=== PATIENT | female | born 1945 | race Caucasian/White ===

== ENCOUNTER 2021-10-29 15:38 | Inpatient (IN) ==
[2021-10-29] MEDS ORDERED: Artificial Tears SOLN 15 ML BOTTLE OP PRN (16:54)
[2021-10-29] MEDS ORDERED: Loratadine/Pseudophed (12 HR) 1 EACH TABLET PO PRN (16:54)
[2021-10-29] MEDS ORDERED: Denosumab 60 MG/ML SYRINGE SQ SCH (17:00)
[2021-10-29] MEDS: Metoprolol XL (24 HR) Succ 50 MG TAB.ER.24H PO SCH (20:38)
[2021-10-29] MEDS: Apixaban 5 MG TABLET PO SCH (20:38)
[2021-10-29] MEDS ORDERED: Metoprolol XL (24 HR) Succ 50 MG TAB.ER.24H PO SCH (21:00)
[2021-10-29] MEDS ORDERED: Metoprolol XL (24 HR) Succ 25 MG TAB.ER.24H PO SCH (21:00)
[2021-10-30 04:52] LABS: Basophils % 0.2 %; Eosinophils # 0.2 K/mcL (0.0-0.6); Eosinophils % 1.7 %; Hematocrit 29.8 % (35.3-44.9); Hemoglobin 9.9 g/dL (11.5-15.4); Immature Granulocytes % 0.8 % (0-4); Lymphocytes # 0.9 K/mcL (0.6-4.6); Lymphocytes % 8.9 %; Mean Corpuscular HGB Conc 33.2 g/dL (31.6-35.5); Mean Corpuscular Hemoglobin 33.9 pg (28.0-33.3); Mean Platelet Volume 10.8 fL (9.4-12.4); Monocytes # 0.6 K/mcL (0.0-1.3); Monocytes % 6.5 %; Neutrophils # 7.9 K/mcL (1.6-8.9); Platelet Count 257 K/mcL (140-400); Red Blood Count 2.92 M/mcL (3.82-4.97); Red Cell Distribution Width 14.5 % (11.5-14.5); Segmented Neutrophils % 81.9 %; White Blood Count 9.7 K/mcL (4.3-11.1)
[2021-10-30 05:04] LABS: BUN/Creatinine Ratio 19 (6-26); Blood Urea Nitrogen 10 mg/dL (8-23); Calcium 7.9 mg/dL (8.6-10.3); Carbon Dioxide 27 mEq/L (23-29); Chloride 103 mEq/L (98-107); Glucose 103 mg/dL (70-105); Osmolality,Calculated 283 (280-300); Potassium 3.9 mEq/L (3.5-5.1); Sodium 137 mEq/L (136-145); eGFR For African Americans > 60 (> 60); eGFR For Non-African Americans > 60 (> 60)
[2021-10-30 05:14] LABS: Mean Corpuscular Volume 102.1 fL (83.0-100.0)
[2021-10-30] MEDS: Apixaban 5 MG TABLET PO SCH ×2 (09:06→20:52)
[2021-10-30] MEDS: Metoprolol XL (24 HR) Succ 50 MG TAB.ER.24H PO SCH ×2 (09:06→20:52)
[2021-10-30] MEDS: Multivit/Ca/Min/Fe/FA 1 TAB TABLET PO SCH (09:07)
[2021-10-30] MEDS: lisinopriL 5 MG TABLET PO SCH (09:07)
[2021-10-30] MEDS: Aspirin 81 MG TAB.CHEW PO SCH (09:07)
[2021-10-30] MEDS: hydroCHLOROthiazide 25 MG TABLET PO SCH (09:07)
[2021-10-30] MEDS: DilTIAZem CD (24hr) 180 MG CAP.ER.24H PO SCH (09:07)
[2021-10-31] MEDS: Metoprolol XL (24 HR) Succ 50 MG TAB.ER.24H PO SCH ×2 (08:40→22:08)
[2021-10-31] MEDS: hydroCHLOROthiazide 25 MG TABLET PO SCH (08:42)
[2021-10-31] MEDS: Aspirin 81 MG TAB.CHEW PO SCH (08:42)
[2021-10-31] MEDS: DilTIAZem CD (24hr) 180 MG CAP.ER.24H PO SCH (08:42)
[2021-10-31] MEDS: lisinopriL 5 MG TABLET PO SCH (08:42)
[2021-10-31] MEDS: Apixaban 5 MG TABLET PO SCH ×2 (08:42→22:07)
[2021-10-31] MEDS: Multivit/Ca/Min/Fe/FA 1 TAB TABLET PO SCH (08:43)
[2021-11-01] MEDS: DilTIAZem CD (24hr) 180 MG CAP.ER.24H PO SCH (08:44)
[2021-11-01] MEDS: lisinopriL 5 MG TABLET PO SCH (08:45)
[2021-11-01] MEDS: Aspirin 81 MG TAB.CHEW PO SCH (08:45)
[2021-11-01] MEDS: Multivit/Ca/Min/Fe/FA 1 TAB TABLET PO SCH (08:45)
[2021-11-01] MEDS: Apixaban 5 MG TABLET PO SCH ×2 (08:45→19:43)
[2021-11-01] MEDS: Metoprolol XL (24 HR) Succ 50 MG TAB.ER.24H PO SCH ×2 (08:46→19:43)
[2021-11-01] MEDS: hydroCHLOROthiazide 25 MG TABLET PO SCH (08:47)
[2021-11-02 04:40] LABS: Hematocrit 29.5 % (35.3-44.9); Hemoglobin 9.8 g/dL (11.5-15.4); Mean Corpuscular HGB Conc 33.2 g/dL (31.6-35.5); Mean Corpuscular Hemoglobin 33.7 pg (28.0-33.3); Mean Corpuscular Volume 101.4 fL (83.0-100.0); Mean Platelet Volume 10.6 fL (9.4-12.4); Platelet Count 270 K/mcL (140-400); Red Blood Count 2.91 M/mcL (3.82-4.97); Red Cell Distribution Width 14.6 % (11.5-14.5); White Blood Count 9.8 K/mcL (4.3-11.1)
[2021-11-02 04:58] LABS: Alanine Aminotransferase 37 Units/L (7-52); Albumin 2.6 g/dL (3.5-5.7); Albumin/Globulin Ratio 0.8 (1.1-2.2); Alkaline Phosphatase 138 Units/L (34-104); Aspartate Amino Transferase 39 Units/L (13-39); BUN/Creatinine Ratio 14 (6-26); Bilirubin,Total 0.6 mg/dL (0.3-1.0); Blood Urea Nitrogen 8 mg/dL (8-23); Calcium 8.9 mg/dL (8.6-10.3); Carbon Dioxide 29 mEq/L (23-29); Chloride 101 mEq/L (98-107); Globulin 3.4 g/dL (2.4-3.5); Glucose 98 mg/dL (70-105); Magnesium 1.6 mg/dL (1.6-2.6); Osmolality,Calculated 282 (280-300); Potassium 3.2 mEq/L (3.5-5.1); Sodium 137 mEq/L (136-145); eGFR For African Americans > 60 (> 60); eGFR For Non-African Americans > 60 (> 60)
[2021-11-02] MEDS: DilTIAZem CD (24hr) 180 MG CAP.ER.24H PO SCH (09:07)
[2021-11-02] MEDS: lisinopriL 5 MG TABLET PO SCH (09:08)
[2021-11-02] MEDS: hydroCHLOROthiazide 25 MG TABLET PO SCH (09:08)
[2021-11-02] MEDS: Apixaban 5 MG TABLET PO SCH ×2 (09:08→20:36)
[2021-11-02] MEDS: Aspirin 81 MG TAB.CHEW PO SCH (09:08)
[2021-11-02] MEDS: Metoprolol XL (24 HR) Succ 50 MG TAB.ER.24H PO SCH ×2 (09:09→20:36)
[2021-11-02] MEDS: Multivit/Ca/Min/Fe/FA 1 TAB TABLET PO SCH (09:09)
[2021-11-03] MEDS: DilTIAZem CD (24hr) 180 MG CAP.ER.24H PO SCH (09:11)
[2021-11-03] MEDS: Metoprolol XL (24 HR) Succ 50 MG TAB.ER.24H PO SCH ×2 (09:11→20:04)
[2021-11-03] MEDS: hydroCHLOROthiazide 25 MG TABLET PO SCH (09:11)
[2021-11-03] MEDS: Multivit/Ca/Min/Fe/FA 1 TAB TABLET PO SCH (09:11)
[2021-11-03] MEDS: Aspirin 81 MG TAB.CHEW PO SCH (09:11)
[2021-11-03] MEDS: Apixaban 5 MG TABLET PO SCH ×2 (09:11→20:04)
[2021-11-03] MEDS: lisinopriL 5 MG TABLET PO SCH (09:26)
[2021-11-03] MEDS: Acetaminophen 325 MG TABLET PO PRN (17:01)
[2021-11-04] MEDS: Acetaminophen 325 MG TABLET PO PRN ×2 (04:50→20:15)
[2021-11-04 05:07] LABS: Hemoglobin 9.4 g/dL (11.5-15.4); Mean Corpuscular HGB Conc 33.6 g/dL (31.6-35.5); Mean Corpuscular Hemoglobin 34.3 pg (28.0-33.3); Mean Corpuscular Volume 102.2 fL (83.0-100.0); Mean Platelet Volume 10.6 fL (9.4-12.4); Platelet Count 309 K/mcL (140-400); Red Blood Count 2.74 M/mcL (3.82-4.97); Red Cell Distribution Width 14.7 % (11.5-14.5); White Blood Count 12.2 K/mcL (4.3-11.1)
[2021-11-04 05:20] LABS: BUN/Creatinine Ratio 14 (6-26); Blood Urea Nitrogen 8 mg/dL (8-23); Calcium 8.9 mg/dL (8.6-10.3); Carbon Dioxide 30 mEq/L (23-29); Chloride 99 mEq/L (98-107); Glucose 115 mg/dL (70-105); Osmolality,Calculated 279 (280-300); Potassium 3.4 mEq/L (3.5-5.1); Sodium 135 mEq/L (136-145); eGFR For African Americans > 60 (> 60); eGFR For Non-African Americans > 60 (> 60)
[2021-11-04] MEDS: Aspirin 81 MG TAB.CHEW PO SCH (09:18)
[2021-11-04] MEDS: lisinopriL 5 MG TABLET PO SCH (09:18)
[2021-11-04] MEDS: hydroCHLOROthiazide 25 MG TABLET PO SCH (09:18)
[2021-11-04] MEDS: Metoprolol XL (24 HR) Succ 50 MG TAB.ER.24H PO SCH ×2 (09:18→20:15)
[2021-11-04] MEDS: DilTIAZem CD (24hr) 180 MG CAP.ER.24H PO SCH (09:18)
[2021-11-04] MEDS: Apixaban 5 MG TABLET PO SCH ×2 (09:18→20:15)
[2021-11-04] MEDS: Multivit/Ca/Min/Fe/FA 1 TAB TABLET PO SCH (09:18)
[2021-11-04 17:36] LABS: Bilirubin,Urine Negative (Negative); Blood,Urine Small (Negative); Clarity,Urine Clear (Clear); Color,Urine Yellow (Yellow); Glucose,Urine (UA) Normal (Normal); Ketones,Urine Negative (Negative); Leukocyte Esterase,Urine Negative (Negative); Nitrite,Urine Negative (Negative); PH,Urine 7.5 pH Units (5.0-8.0); Protein,Urine Negative (Neg-Trace); Urobilinogen,Urine Normal (Normal)
[2021-11-04 17:59] LABS: RBC,Urine 15-30 per hpf (0-3); Squamous Epithelial Cell,Urine Few per hpf (None-Few)
[2021-11-05] MEDS: lisinopriL 5 MG TABLET PO SCH (08:59)
[2021-11-05] MEDS: Apixaban 5 MG TABLET PO SCH ×2 (08:59→19:58)
[2021-11-05] MEDS: hydroCHLOROthiazide 25 MG TABLET PO SCH (09:00)
[2021-11-05] MEDS: Aspirin 81 MG TAB.CHEW PO SCH (09:00)
[2021-11-05] MEDS: Metoprolol XL (24 HR) Succ 50 MG TAB.ER.24H PO SCH ×2 (09:01→19:58)
[2021-11-05] MEDS: Multivit/Ca/Min/Fe/FA 1 TAB TABLET PO SCH (09:01)
[2021-11-05] MEDS: DilTIAZem CD (24hr) 180 MG CAP.ER.24H PO SCH (09:01)
[2021-11-05] MEDS: Acetaminophen 325 MG TABLET PO PRN ×2 (13:38→19:58)
[2021-11-06] MEDS: Acetaminophen 325 MG TABLET PO PRN ×3 (06:17→20:58)
[2021-11-06] MEDS: hydroCHLOROthiazide 25 MG TABLET PO SCH (09:48)
[2021-11-06] MEDS: lisinopriL 5 MG TABLET PO SCH (09:48)
[2021-11-06] MEDS: Apixaban 5 MG TABLET PO SCH ×2 (09:49→20:58)
[2021-11-06] MEDS: Metoprolol XL (24 HR) Succ 50 MG TAB.ER.24H PO SCH ×2 (09:50→20:57)
[2021-11-06] MEDS: Aspirin 81 MG TAB.CHEW PO SCH (09:50)
[2021-11-06] MEDS: DilTIAZem CD (24hr) 180 MG CAP.ER.24H PO SCH (09:50)
[2021-11-06] MEDS: Multivit/Ca/Min/Fe/FA 1 TAB TABLET PO SCH (09:50)
[2021-11-07 04:05] VITALS: RESP 16
[2021-11-07 06:50] VITALS: BP 122/75; PULSE 51; TEMP 98.3; O2SAT 97
[2021-11-07] MEDS: Aspirin 81 MG TAB.CHEW PO SCH (07:31)
[2021-11-07] MEDS: Apixaban 5 MG TABLET PO SCH (07:31)
[2021-11-07] MEDS: Metoprolol XL (24 HR) Succ 50 MG TAB.ER.24H PO SCH (07:31)
[2021-11-07] MEDS: Multivit/Ca/Min/Fe/FA 1 TAB TABLET PO SCH (07:31)
[2021-11-07] MEDS: DilTIAZem CD (24hr) 180 MG CAP.ER.24H PO SCH (07:31)
[2021-11-07] MEDS: lisinopriL 5 MG TABLET PO SCH (07:31)
[2021-11-07] MEDS: hydroCHLOROthiazide 25 MG TABLET PO SCH (07:32)
[2021-11-07] MEDS: Acetaminophen 325 MG TABLET PO PRN (08:22)
== END 2021-11-07 09:30 | DRG 186 ==
LOC: INPGRE 19:18
PROVIDERS: ADMIT Family Medicine; ATTEND Family Medicine